=== PATIENT | female | born 1975 | race Caucasian/White ===

== ENCOUNTER 2016-04-30 03:02 | Inpatient (IN) | payer BC ==
[~2016-04-30] VITALS: Ht 167.6 cm; Wt 82.7 kg
[~2016-04-30 03:02] MED LIST: ADVAIR IH; AMBIEN CR 12.12.5 MG PO; AVELOX 400MG T400 MG PO; BACTRIM DS 8001 TAB PO; BIAXIN250 MG PO; CALCIUM CARBONATE; DALIRESP500 MCG PO; LEVOTHYROXINE PO; PRAVACHOL 20MG20 MG PO; PREDNISONE20 MG PO; PRILOSEC 20MG20 MG PO; PROMETHAZINE D118 ML PO; PROVENTIL0.09 MG/A1 IH; RT ADVAIR 528 DISKUS IH; SINGULAIR 110 MG/TAB PO; THEO-24 20200 MG/CAP PO; THEO-24200 MG PO; TUMS500 MG PO; VENTOLIN0.09 MG IH; VITAMIN D1000 IU PO; ZESTRIL 10MG10 MG PO; ZYRTEC 10MG10 MG PO
[2016-04-30 04:14] VITALS: BP 131/81; PULSE 92; TEMP 98.2
[2016-04-30] MEDS ORDERED: SYNTHROID0.1 MG/TAB PO (04:48)
[2016-04-30] MEDS ORDERED: XANAX 1MG1 MG PO (04:49)
[2016-04-30] MEDS ORDERED: ZYFLO CR600 MG PO (04:50)
[2016-04-30] MEDS ORDERED: MAXZIDE-25MG TA1 TAB PO (04:51)
[2016-04-30] MEDS ORDERED: CYMBALTA 60MG60 MG PO (04:52)
[2016-04-30] MEDS ORDERED: MOBIC15 MG PO (04:53)
[2016-04-30] MEDS ORDERED: CARDI-OMEGA1000 MG PO (04:54)
[2016-04-30] MEDS ORDERED: VITAMIN D32000 I1 PO (04:54)
[2016-04-30 07:52] LABS: BASO % 0.2 % (0.0-2.0); EOS # 0.3 (0.0-0.7); EOS % 1.8 % (0-4.0); GRAN # 11.3 (1.4-6.5); GRAN % 73.9 % (42.2-75.2); HEMOGLOBIN 14.5 g/dl (12.5-16.0); LYMPH # 2.5 (1.2-3.4); LYMPH % 16.5 % (20.0-51.0); MEAN CELL VOLUME 93 fl (80.0-100.0); MEAN CORPUSCULAR HEMOGLOBIN 31 pg (27.0-31.0); MEAN CORPUSCULAR HGB CONC 33 g/dl (33.0-37.0); MEAN PLATELET VOLUME 10.3 fl (7.4-10.4); MONO % 6.8 % (1.7-9.3); PLATELET COUNT 290 K/mm3 (130-400); RED BLOOD COUNT 4.72 M/mm3 (4.10-5.30); REDCELL DISTRIBUTION WIDTH-CV 12.7 % (11.5-14.5); WHITE BLOOD COUNT 15.2 K/mm3 (4.8-10.8)
[2016-04-30 08:10] LABS: CALCIUM 9.4 mg/dL (8.4-10.2); CREATININE, serum 1.74 mg/dL (0.52-1.25); POTASSIUM 4.5 mmol/L (3.4-5.0)
[2016-04-30 09:40] VITALS: BP 127/80; PULSE 89; TEMP 97.3
[2016-04-30 13:42] VITALS: BP 119/79; PULSE 97; TEMP 97.1
[2016-04-30 17:52] VITALS: BP 115/73; PULSE 82; TEMP 96.7
[2016-04-30 22:00] VITALS: BP 103/53; PULSE 87; TEMP 98.9
[2016-05-01 06:03] VITALS: BP 104/62; PULSE 76; TEMP 98.4
[2016-05-01 07:59] LABS: BASO % 0.2 % (0.0-2.0); EOS # 0.4 (0.0-0.7); GRAN # 7.2 (1.4-6.5); GRAN % 66.2 % (42.2-75.2); HEMATOCRIT 38.6 % (37.0-47.0); HEMOGLOBIN 12.6 g/dl (12.5-16.0); LYMPH # 2.5 (1.2-3.4); MEAN CELL VOLUME 94 fl (80.0-100.0); MEAN CORPUSCULAR HEMOGLOBIN 31 pg (27.0-31.0); MEAN CORPUSCULAR HGB CONC 33 g/dl (33.0-37.0); MEAN PLATELET VOLUME 10.2 fl (7.4-10.4); MONO # 0.7 (0.1-0.6); MONO % 6.1 % (1.7-9.3); PLATELET COUNT 265 K/mm3 (130-400); RED BLOOD COUNT 4.09 M/mm3 (4.10-5.30); REDCELL DISTRIBUTION WIDTH-CV 12.7 % (11.5-14.5); WHITE BLOOD COUNT 10.9 K/mm3 (4.8-10.8)
[2016-05-01 08:06] LABS: CALCIUM 8.5 mg/dL (8.4-10.2); CREATININE, serum 0.85 mg/dL (0.52-1.25); POTASSIUM 4.2 mmol/L (3.4-5.0)
[2016-05-01 09:36] VITALS: BP 126/70; PULSE 97; TEMP 98.7
[2016-05-01 13:45] VITALS: BP 130/78; PULSE 97; TEMP 98.3
== END 2016-05-01 16:30 | disposition home or self-care (01) | DRG 390 ==
LOC: SURG 03:02
PROVIDERS: Surgery
DX: K56.60 Unspecified intestinal obstruction (principal); I10 Essential (primary) hypertension; M35.9 Systemic involvement of connective tissue, unspecified; J45.909 Unspecified asthma, uncomplicated
CPT/HCPCS: J1170; J2405; J2543; J7030; J7050

== ENCOUNTER 2016-05-04 11:33 | Emergency (ER) | payer BC ==
[~2016-05-04] VITALS: Ht 167.6 cm; Wt 79.5 kg
[~2016-05-04 11:33] MED LIST changes: +CARDI-OMEGA1000 MG PO; +CYMBALTA 60MG60 MG PO; +MAXZIDE-25MG TA1 TAB PO; +MOBIC15 MG PO; +SYNTHROID0.1 MG/TAB PO; +VITAMIN D32000 I1 PO; +XANAX 1MG1 MG PO; +ZYFLO CR600 MG PO
[2016-05-04 11:39] VITALS: TEMP 97.6
[2016-05-04 13:05] LABS: BASO # 0.1 (0.0-0.2); BASO % 0.3 % (0.0-2.0); EOS # 0.6 (0.0-0.7); EOS % 3.3 % (0-4.0); GRAN # 14.5 (1.4-6.5); HEMATOCRIT 48.6 % (37.0-47.0); HEMOGLOBIN 16.1 g/dl (12.5-16.0); LYMPH # 2.3 (1.2-3.4); LYMPH % 12.1 % (20.0-51.0); MEAN CELL VOLUME 92 fl (80.0-100.0); MEAN CORPUSCULAR HEMOGLOBIN 31 pg (27.0-31.0); MEAN CORPUSCULAR HGB CONC 33 g/dl (33.0-37.0); MEAN PLATELET VOLUME 10.2 fl (7.4-10.4); MONO # 1.1 (0.1-0.6); MONO % 5.9 % (1.7-9.3); PLATELET COUNT 345 K/mm3 (130-400); RED BLOOD COUNT 5.28 M/mm3 (4.10-5.30); REDCELL DISTRIBUTION WIDTH-CV 12.6 % (11.5-14.5); WHITE BLOOD COUNT 18.6 K/mm3 (4.8-10.8)
[2016-05-04 13:06] LABS: ADJUSTED CALCIUM 9.9 mg/dL (8.4-10.2); ALBUMIN 4.8 gm/dL (3.5-5.0); BILIRUBIN,TOTAL 0.8 mg/dL (0.0-1.0); C-REACTIVE PROTEIN 0.9 mg/dL (0.0-0.9); CALCIUM 10.5 mg/dL (8.4-10.2); CREATININE, serum 0.93 mg/dL (0.52-1.25); MAGNESIUM 1.7 mg/dL (1.6-2.3); TOTAL PROTEIN 8.3 gm/dL (6.4-8.2)
[2016-05-04 13:22] LABS: PH 6 (5-8); URINE APPEARANCE Hazy; URINE BACTERIA Rare /hpf; URINE BILIRUBIN Negative (NEGATIVE); URINE BLOOD 1+ (NEGATIVE); URINE COLOR Yellow; URINE GLUCOSE Negative (NEGATIVE); URINE KETONE Negative (NEGATIVE); URINE UROBILINOGEN Negative (NEGATIVE); URINE WBC 0-2 /hpf
[2016-05-04] MEDS ORDERED: NORCO 325 MG-51 TAB PO (15:27)
[2016-05-04] MEDS ORDERED: ZOFRAN ODT4 MG PO (15:27)
[2016-05-04] MEDS ORDERED: PHENERGAN 25 TA25 MG PO (15:27)
[2016-05-04 15:35] VITALS: BP 132/94; PULSE 87
== END 2016-05-04 16:18 | disposition home or self-care (01) ==
LOC: COL.ER 11:33
PROVIDERS: Emergency Medicine
DX: R11.10 Vomiting, unspecified (principal); R19.7 Diarrhea, unspecified
CPT/HCPCS: J1170; J2550; J7030; Q9967

== ENCOUNTER 2016-12-09 23:46 | Emergency (ER) | payer SELFPAY ==
[~2016-12-09] VITALS: Ht 167.6 cm; Wt 76.4 kg
[~2016-12-09 23:46] MED LIST changes: +NORCO 325 MG-51 TAB PO; +PHENERGAN 25 TA25 MG PO; +ZOFRAN ODT4 MG PO
[2016-12-09 23:47] VITALS: BP 131/82; TEMP 98.3
[2016-12-10 01:10] VITALS: PULSE 92
== END 2016-12-10 01:11 | disposition home or self-care (01) ==
LOC: COL.ER 23:46
DX: J20.9 Acute bronchitis, unspecified (principal); E03.9 Hypothyroidism, unspecified; I10 Essential (primary) hypertension; F41.9 Anxiety disorder, unspecified; J45.909 Unspecified asthma, uncomplicated; F17.210 Nicotine dependence, cigarettes, uncomplicated; Z90.710 Acquired absence of both cervix and uterus

== ENCOUNTER 2020-06-08 11:38 | Emergency (ER) | payer SELFPAY ==
[~2020-06-08] VITALS: Ht 167.6 cm; Wt 77.3 kg
[2020-06-08 11:46] VITALS: TEMP 97.6
[2020-06-08 12:15] LABS: COLLECTION METHOD CLEAN CATCH
[2020-06-08 12:19] LABS: BASO # 0.1 (0.0-0.2); BASO % 1.1 % (0.0-2.0); EOS # 0.9 (0.0-0.7); EOS % 7.1 % (0-4.0); GRAN # 7.7 (1.4-6.5); GRAN % 61.7 % (42.2-75.2); HEMATOCRIT 51.5 % (37.0-47.0); HEMOGLOBIN 16.5 g/dl (12.5-16.0); LYMPH # 3.2 (1.2-3.4); LYMPH % 25.2 % (20.0-51.0); MEAN CELL VOLUME 93 fl (80.0-100.0); MEAN CORPUSCULAR HEMOGLOBIN 30 pg (27.0-31.0); MEAN CORPUSCULAR HGB CONC 32 g/dl (33.0-37.0); MONO # 0.6 (0.1-0.6); MONO % 4.6 % (1.7-9.3); PLATELET COUNT 326 K/mm3 (130-400); RED BLOOD COUNT 5.57 M/mm3 (4.10-5.30)
[2020-06-08 12:23] LABS: PH 8 (5-8); SQUAMOUS EPITHELIAL 0-2 /hpf; URINE APPEARANCE Clear; URINE BACTERIA Rare /hpf; URINE BILIRUBIN Negative (NEGATIVE); URINE BLOOD Negative (NEGATIVE); URINE COLOR Yellow; URINE GLUCOSE Negative (NEGATIVE); URINE KETONE Negative (NEGATIVE); URINE LEUKOCYTE ESTERASE Negative (NEGATIVE); URINE NITRATE Negative (NEGATIVE); URINE PROTEIN(semi-quant) Negative (NEGATIVE); URINE RBC 0-2 /hpf; URINE UROBILINOGEN Negative (NEGATIVE)
[2020-06-08 12:26] LABS: MUCOUS Present /lpf
[2020-06-08 12:29] LABS: ALBUMIN 4.7 gm/dL (3.5-5.0); BILIRUBIN,TOTAL 0.7 mg/dL (0.0-1.0); CALCIUM 9.8 mg/dL (8.4-10.2); CREATININE, serum 0.73 (0.52-1.25); POTASSIUM 4.6 mmol/L (3.4-5.0); TOTAL PROTEIN 8.1 gm/dL (6.4-8.2)
[2020-06-08 14:46] VITALS: BP 140/111; PULSE 82
== END 2020-06-08 14:48 | disposition home or self-care (01) ==
LOC: COL.ER 11:38
PROVIDERS: Emergency Medicine
DX: R10.9 Unspecified abdominal pain (principal); J45.909 Unspecified asthma, uncomplicated; Z90.710 Acquired absence of both cervix and uterus; Z32.02 Encounter for pregnancy test, result negative; Z88.1 Allergy status to other antibiotic agents
CPT/HCPCS: J1885; J3010; J7120; Q9967

== ENCOUNTER → 2023-01-26 | Outpatient (CLI) | payer MEDICAID | LOC: MHCPAIN 09:06 | DX: M47.897 Other spondylosis, lumbosacral region (principal); M54.50 Low back pain, unspecified | CPT/HCPCS: G0463 ==

== ENCOUNTER 2023-07-25 11:20 | Inpatient (IN) | payer OTHER ==
[~2023-07-25] VITALS: Ht 167.6 cm; Wt 96.8 kg
[2023-07-25] VITALS (509 sets, daily range): BP systolic 72–102; BP diastolic 39–72; PULSE 81–90; TEMP 98.1–98.7; O2SAT 56–100
--- NOTE | 2023-07-25 11:00 | NUR ---
Report received from DORCAS Pradhan; patient arrived via [facility] with levo, epi, and fluids running through her peripheral lines and a Ag catheter in place. Patient on room air and vital signs within normal limits with the exception of blood pressure which has remained soft. Epi discontinued upon transfer and levo continued at a rate of 0.13 mcg/kg/min for a rate of 44.7 mL. Patient alert and oriented with no complaints of pain. Intake information discussed and patient's questions answered. Dr. Posey aware of patient's arrival to the unit.
[~2023-07-25 11:20] MED LIST changes: -SYNTHROID0.1 MG/TAB PO; +SYNTHROID0.125 MG/T PO
[2023-07-25] MEDS ORDERED: NS 1,000 ML IV SCH (11:45)
[2023-07-25] MEDS ORDERED: Acetaminophen 325 MG TAB PO PRN (12:00)
[2023-07-25] MEDS ORDERED: Ondansetron 4 MG/2 ML VIAL IV PRN (12:00)
[2023-07-25] MEDS ORDERED: Albuterol/Ipratropium 3 MG-0.5 MG/3 ML Neb Soln IH PRN (12:00)
[2023-07-25] MEDS ORDERED: 00186-0370-20 IH (12:11)
[2023-07-25] MEDS ORDERED: BUSPAR10 MG PO (12:12)
[2023-07-25] MEDS ORDERED: ESTRACE 1MG1 MG/TAB PO (12:13)
[2023-07-25] MEDS ORDERED: AUVELITY ER 451 EACH PO (12:13)
[2023-07-25] MEDS ORDERED: MINIPRESS 1M1 MG/CAP PO (12:15)
[2023-07-25] MEDS ORDERED: LYRICA 150MG C150 MG PO (12:16)
[2023-07-25] MEDS ORDERED: SEROQUEL50 MG PO (12:17)
[2023-07-25] MEDS ORDERED: CRESTOR5 MG PO (12:18)
[2023-07-25] MEDS ORDERED: WEGOVY0.25 MG/0. SQ (12:19)
[2023-07-25] MEDS ORDERED: VIIBRYD40 MG PO (12:20)
[2023-07-25] MEDS ORDERED: Montelukast 10 MG TAB PO SCH (12:30)
[2023-07-25] MEDS ORDERED: Cetirizine 10 MG TAB PO SCH (12:30)
[2023-07-25 12:59] LABS: CALCIUM 7.5 mg/dL (8.4-10.2); CREATININE, serum 6.81 mg/dL (0.57-1.11); POTASSIUM 3.3 mEq/L (3.5-4.5)
[2023-07-25 13:09] LABS: TROPONIN-I 0.039 ng/mL (0.00-0.033)
[2023-07-25] MEDS ORDERED: Pregabalin 150 MG CAP PO SCH (14:00)
[2023-07-25] MEDS ORDERED: busPIRone 5 MG TAB PO SCH (14:00)
[2023-07-25] MEDS ORDERED: Heparin 5,000 UNITS/ML 1 ML VIAL SQ SCH (14:00)
[2023-07-25] MEDS ORDERED: Albuterol/Ipratropium 3 MG-0.5 MG/3 ML Neb Soln IH SCH (14:00)
[2023-07-25] MEDS ORDERED: Sodium Bicarbonate 650 MG TAB PO SCH (15:17)
[2023-07-25 16:11] LABS: COLLECTION METHOD CATHETER
[2023-07-25 16:34] LABS: PH 5.5 (5.0-8.5); URINE APPEARANCE CLEAR (CLEAR/HAZY); URINE BLOOD 1+ (NEGATIVE); URINE COLOR YELLOW (YELLOW); URINE GLUCOSE 2+ (NEGATIVE); URINE KETONE NEGATIVE (NEGATIVE); URINE NITRATE NEGATIVE (NEGATIVE); URINE PROTEIN(semi-quant) 1+ (NEGATIVE); URINE UROBILINOGEN 0.2 E.U/dL (0.2-1.0)
[2023-07-25] MEDS ORDERED: Formoterol 20 MCG,Budesonide 0.5 MG IH SCH (19:00)
--- NOTE | 2023-07-25 19:37 | NUR ---
PATIENT LAYINGIN BED, ALERT AND CALM. IV IN RIGHT AC WITH LEVO AND NS RUNNING. NO ACUTE EVENTS.
[2023-07-25] MEDS ORDERED: ALPRAZolam 0.5 MG TAB PO SCH (21:00)
[2023-07-25 22:35] LABS: CALCIUM 7.3 mg/dL (8.4-10.2); CREATININE, serum 5.95 mg/dL (0.57-1.11)
[2023-07-25] MEDS ORDERED: Potassium Bicarbonate/Citrate 20 MEQ Effervescent TAB PO ONE (23:00)
[2023-07-26] VITALS (781 sets, daily range): BP systolic 65–113; BP diastolic 37–101; PULSE 78–105; TEMP 97.8–98.6; O2SAT 64–100
[2023-07-26 01:27] LABS: CALCIUM 7.4 mg/dL (8.4-10.2); CREATININE, serum 5.63 mg/dL (0.57-1.11); POTASSIUM 3.2 mEq/L (3.5-4.5)
[2023-07-26 06:25] LABS: BASO # 0.2 K/mm3 (0.0-0.2); BASO % 1.4 % (0.0-2.0); EOS # 0.7 K/mm3 (0.0-0.7); EOS % 4.5 % (0.0-4.0); GRAN # 9.1 K/mm3 (1.4-6.5); GRAN % 62.5 % (42.2-75.2); HEMATOCRIT 44.3 % (37.0-47.0); HEMOGLOBIN 14.2 g/dl (12.5-16.0); LYMPH # 3.4 K/mm3 (1.2-3.4); LYMPH % 23.5 % (20.0-51.0); MEAN CELL VOLUME 89 fl (80.0-100.0); MEAN CORPUSCULAR HEMOGLOBIN 29 pg (27-31); MEAN CORPUSCULAR HGB CONC 32 g/dl (33.0-37.0); MONO # 1.1 K/mm3 (0.1-0.6); MONO % 7.8 % (1.7-9.3); PLATELET COUNT 384 K/mm3 (130-400); RED BLOOD COUNT 4.99 M/mm3 (4.10-5.30)
[2023-07-26 06:40] LABS: CALCIUM 7.8 mg/dL (8.4-10.2); CREATININE, serum 5.06 mg/dL (0.57-1.11); MAGNESIUM 1.7 mg/dL (1.6-2.6); PHOSPHOROUS 3.9 mg/dL (2.3-4.7); POTASSIUM 3.1 mEq/L (3.5-4.5)
[2023-07-26 06:49] LABS: TROPONIN-I 0.014 ng/mL (0.00-0.033)
[2023-07-26] MEDS ORDERED: LEVOTHYROXINE PO SCH (07:00)
--- NOTE | 2023-07-26 07:00 | NUR ---
Report received from DORCAS Galeas; patient resting in bed watching TV. Patient has levo and NS running through her peripheral line. Patient still has Ag catheter in place; no other lines or tubes are in place at this time. Patient's vital signs are within normal limits this morning.
[2023-07-26] MEDS ORDERED: Vilazodone 10 MG TAB PO SCH (09:00)
[2023-07-26] MEDS ORDERED: *Potassium Replacement Protocol MC SCH (10:00)
[2023-07-26] MEDS ORDERED: Potassium Bicarbonate/Citrate 20 MEQ Effervescent TAB PO ONE (10:00)
[2023-07-26] MEDS ORDERED: Magnesium Oxide 400 MG TAB PO SCH (12:00)
--- NOTE | 2023-07-26 13:17 | NUR ---
Social work student met with patient to discuss discharge planning. Patient's best point of contacts are her partner Reagan (ph#:[phone]) and daughter Nakul (ph#:[phone]). Patient sees for primary care and obtains her medications from [facility] in [place] with no difficulties affording them. Patient does not use DME and is independent with ADLS. Patient transports herself to and from appointments and has no concerns with returning home at time of discharge. Discharge plan: Home
[2023-07-26] MEDS ORDERED: cefTRIAXone 1 G in Water For Injection,Sterile 10 ML IV SCH (14:00)
--- NOTE | 2023-07-26 21:54 | NUR ---
PATIENT WITH ONE IV INFUSING NS AND LEVOPHED WAS RESTARTED SHORTLY AFTER SHIFT CHANGE. THE PUMP WOULD RING OCCLUDED WITH NO PATIENT MOVEMENT. THE IV SITE APPEARS TO BE INTACT AND NOT LEAKING. A NEW IV WAS PLACED. WILL CONTINUE TO TITRATE THE LEVOPHED WITH THE NEW IV IN PLACE AND MONITOR THE BP.
--- NOTE | 2023-07-26 23:03 | NUR ---
PT IS SITTING IN THE BED EATING DINNER. ALERT AND ORIENTED. SILVA CATHETER IN PLACE DRAINING URINE. ONE IV INFUSING FLUIDS. NO COMPLAINTS OF PAIN. NO FAMILY AT THE BEDSIDE. BED ALARM ACTIVATED AND CALL BLACKMAN AT THE BEDSIDE.
[2023-07-27] VITALS (618 sets, daily range): BP systolic 95–119; BP diastolic 55–78; PULSE 80–96; TEMP 98.2–98.6; O2SAT 33–100
[2023-07-27 04:29] LABS: BASO # 0.2 K/mm3 (0.0-0.2); BASO % 1.3 % (0.0-2.0); EOS # 0.6 K/mm3 (0.0-0.7); EOS % 4.9 % (0.0-4.0); GRAN # 7.2 K/mm3 (1.4-6.5); GRAN % 58.2 % (42.2-75.2); LYMPH # 3.4 K/mm3 (1.2-3.4); LYMPH % 27.5 % (20.0-51.0); MEAN CELL VOLUME 87 fl (80.0-100.0); MEAN CORPUSCULAR HGB CONC 33 g/dl (33.0-37.0); MEAN PLATELET VOLUME 11.4 fl (7.4-10.4); MONO % 7.8 % (1.7-9.3); PLATELET COUNT 298 K/mm3 (130-400); REDCELL DISTRIBUTION WIDTH-CV 15.1 % (11.5-14.5)
[2023-07-27 04:41] LABS: CALCIUM 7.5 mg/dL (8.4-10.2); CREATININE, serum 3.26 mg/dL (0.57-1.11); MAGNESIUM 1.3 mg/dL (1.6-2.6); POTASSIUM 3.4 mEq/L (3.5-4.5)
[2023-07-27 04:45] LABS: HEMATOCRIT 35.6 % (37.0-47.0); HEMOGLOBIN 11.7 g/dl (12.5-16.0); MEAN CORPUSCULAR HEMOGLOBIN 29 pg (27-31)
[2023-07-27] MEDS ORDERED: Potassium Bicarbonate/Citrate 20 MEQ Effervescent TAB PO ONE (05:45)
--- NOTE | 2023-07-27 07:45 | NUR ---
Awake and eating breakfast. Patient reports feeling "good" this morning. Denies any concerns or complaints. Call light left within reach.
[2023-07-27] MEDS ORDERED: Magnesium Sulfate 4 GM/50 ML IV SOLN IV ONE (10:00)
--- NOTE | 2023-07-27 10:29 | NUR ---
Initial visit; Patient thanked Robotics Engineer for coming in to see her and offer prayer and support. Patient stated her kidneys shut down and this had happened to her before when she became ill. She agreed with Robotics Engineer when Robotics Engineer offered support by stating she is in good hands with our wonderful Dr's and nurses to take care of her. Robotics Engineer wished her well and will keep her in Robotics Engineer's prayers and follow up while Janet is a patient here.
--- NOTE | 2023-07-27 13:00 | NUR ---
Assisted back to bed after sitting in recliner for lunch. Tolerated well. Taking a "nap" per patient request. Call light left within reach.
[2023-07-27] MEDS ORDERED: Warfarin 5 MG TAB PO SCH (21:00)
[2023-07-28] VITALS (655 sets, daily range): BP systolic 92–124; BP diastolic 55–82; PULSE 68–94; TEMP 97.7–98.6; O2SAT 76–99
[2023-07-28 04:38] LABS: PROTHROMBIN TIME 10.9 SECONDS (9.7-12.8)
--- NOTE | 2023-07-28 07:20 | NUR ---
Patient awake and resting in bed; reports feeling "good" and asking about being transfered to the medical floor today. VS stable. Call light left within reach.
[2023-07-28 08:29] LABS: BASO # 0.1 K/mm3 (0.0-0.2); BASO % 1.1 % (0.0-2.0); EOS # 0.6 K/mm3 (0.0-0.7); EOS % 6.4 % (0.0-4.0); GRAN # 5.6 K/mm3 (1.4-6.5); HEMOGLOBIN 11.8 g/dl (12.5-16.0); LYMPH # 2.5 K/mm3 (1.2-3.4); LYMPH % 26.9 % (20.0-51.0); MEAN CELL VOLUME 90 fl (80.0-100.0); MEAN CORPUSCULAR HEMOGLOBIN 29 pg (27-31); MEAN CORPUSCULAR HGB CONC 32 g/dl (33.0-37.0); MEAN PLATELET VOLUME 11.6 fl (7.4-10.4); MONO # 0.5 K/mm3 (0.1-0.6); MONO % 5.2 % (1.7-9.3); PLATELET COUNT 296 K/mm3 (130-400); RED BLOOD COUNT 4.08 M/mm3 (4.10-5.30); REDCELL DISTRIBUTION WIDTH-CV 15.6 % (11.5-14.5)
[2023-07-28 08:30] LABS: HEMATOCRIT 36.6 % (37.0-47.0)
[2023-07-28 09:01] LABS: CALCIUM 7.8 mg/dL (8.4-10.2); CREATININE, serum 1.73 mg/dL (0.57-1.11); POTASSIUM 3.8 mEq/L (3.5-4.5)
[2023-07-28] MEDS ORDERED: Potassium Bicarbonate/Citrate 20 MEQ Effervescent TAB PO ONE (09:45)
[2023-07-28] MEDS ORDERED: Magnesium Sulfate 4 GM/50 ML IV SOLN IV ONE (11:00)
--- NOTE | 2023-07-28 11:05 | NUR ---
drywall metal stud worker attended clinical rounding with Dr. Guzman. Patient is transferring to medical floor today.
[2023-07-28] MEDS ORDERED: QUEtiapine 25 MG TAB PO SCH (14:00)
--- NOTE | 2023-07-28 14:30 | NUR ---
PT ON THE FLOOR VIA WHEELCHAIR. PT ORIENTED TO ROOM, PHONE, AND CALL LIGHT. INT TO RIGHT FOREARM PATENT. NORMAL SALINE BROUGHT UP FROM ICU AND RESTARTED AT 75 MLS/HR PER ORDER IN RIGHT FOREARM. PT DENIES PAIN OR NEEDS AT THIS TIME. ASSESSMENTS AND MED REC DONE. FALL RISK ITEMS ON. BED IN LOWEST POSITION, CALL LIGHT IN REACH, BED ALARM ON
--- NOTE | 2023-07-28 19:07 | NUR ---
PATIENT RESTING IN BED WITH EYES CLOSED IN THE APPEARANCE OF SLEEP WITH TV ON WITH NO FAMILY PRESENT WITH NO ACUTE DISTRESS NOTED. PATIENT EASILY AROUSED. PATIENT ON ROOM AIR. NS INFUSING INTO RIGHT FOREARM WITH NO COMPLICATIONS NOTED. PATIENT DENIES ANY NEEDS AT THIS TIME. PATIENT CARE ASSUMED FROM [facility]. BED IN LOW POSITION WITH WHEELS LOCKED WITH RAILS UP X3 AND CALL LIGHT WITHIN REACH. BED ALARM ON.
--- NOTE | 2023-07-28 19:24 | NUR ---
REPORT GIVEN TO DORCAS STERN
--- NOTE | 2023-07-28 20:45 | NUR ---
PATIENT SITTING UP IN BED WATCHING TV WITH NO FAMILY PRESENT WITH NO ACUTE DISTRESS NOTED. PATIENT ON ROOM AIR. NS INFUSING INTO RIGHT FOREARM WITH NO COMPLICATIONS NOTED. ASSESSMENT AND MEDICATION ADMINISTRATION COMPLETED AT THIS TIME. PATIENT TOLERATED WELL. PATIENT REQUESTED SOMETHING TO EAT. PATIENT AGREED UPON A SANDWICH TRAY, JELLO, ICE CREAM, AND PUDDING. ALL GIVEN. WATER PITCHER FILLED UP WITH ICE AND WATER. PATIENT DENIES ANY OTHER NEEDS AT THIS TIME. BED IN LOW POSITION WITH WHEELS LOCKED WITH RAILS UP X3 AND CALL LIGHT WITHIN REACH. BED ALARM ON.
--- NOTE | 2023-07-28 22:05 | NUR ---
PATIENT RESTING IN BED WITH TV ON WITH NO FAMILY PRESENT WITH NO ACUTE DISTRESS NOTED. PATIENT ON ROOM AIR. NS INFUSING INTO RIGTH FOREARM WITH NO COMPLICATIONS NOTED. LOVENOX GIVEN AT THIS TIME. PATIENT TOLERATED WELL. PATIENT DENIES ANY NEEDS. BED IN LOW POSITION WITH WHEELS LOCKED WITH RAILS UP X3 AND CALL LIGHT WITHIN REACH. BED ALARM ON.
[2023-07-29] VITALS (10 sets, daily range): BP systolic 111–157; BP diastolic 67–96; PULSE 71–74; TEMP 97.3–99.2
--- NOTE | 2023-07-29 07:12 | NUR ---
pt resting in bed and is awake. IV right forearm running NS at 75 mL/hr. No infiltration or redness noted. Bed at lowest position, call light within reach. Pt denies any needs at this time.
[2023-07-29 07:57] LABS: BASO # 0.1 K/mm3 (0.0-0.2); BASO % 1.5 % (0.0-2.0); EOS # 0.8 K/mm3 (0.0-0.7); EOS % 10.6 % (0.0-4.0); GRAN # 2.7 K/mm3 (1.4-6.5); GRAN % 37.4 % (42.2-75.2); HEMOGLOBIN 11.4 g/dl (12.5-16.0); LYMPH # 3.2 K/mm3 (1.2-3.4); LYMPH % 44.2 % (20.0-51.0); MEAN CELL VOLUME 92 fl (80.0-100.0); MEAN CORPUSCULAR HEMOGLOBIN 29 pg (27-31); MEAN CORPUSCULAR HGB CONC 31 g/dl (33.0-37.0); MEAN PLATELET VOLUME 12.4 fl (7.4-10.4); MONO # 0.5 K/mm3 (0.1-0.6); MONO % 6.3 % (1.7-9.3); PLATELET COUNT 282 K/mm3 (130-400); RED BLOOD COUNT 3.98 M/mm3 (4.10-5.30); REDCELL DISTRIBUTION WIDTH-CV 15.9 % (11.5-14.5)
[2023-07-29 07:58] LABS: HEMATOCRIT 36.7 % (37.0-47.0)
[2023-07-29 08:12] LABS: INR 1.1 (0.8-3.0); PROTHROMBIN TIME 11.6 SECONDS (9.7-12.8)
[2023-07-29 08:34] LABS: CALCIUM 8.1 mg/dL (8.4-10.2); CREATININE, serum 1.38 mg/dL (0.57-1.11); POTASSIUM 4.1 mEq/L (3.5-4.5)
--- NOTE | 2023-07-29 09:00 | NUR ---
PT LAYING IN BED UPON ENTERING. ASSESSMENT DONE, MEDS GIVEN BY [facility] ADN STUDENT. NORMAL SALINE RUNNING AT 75 MLS/HR IN RIGHT FOREARM IV. PT DENIES NEEDS. BED IN LOWEST POSITION, CALL LIGHT IN REACH, BED ALARM ON
--- NOTE | 2023-07-29 10:59 | NUR ---
cloth worker met with pt to discuss PT/OT reccomendations of possible HH services. Pt politely declined and said she is doing okay without it. Pt was unsure when she would discharge and said she was hearing conflicting plans about when this could be. Discharge Plan: home
--- NOTE | 2023-07-29 13:02 | NUR ---
PT ASKING THIS NURSE WHEN SHES GOING TO GET CT OR DISCHARGED. THIS NURSE NOTIFIED HER THAT THERE ARE ORDERS FOR NEITHER AT THIS TIME. DR HECK THEN DR HEMPHILL CALLED. DR HEMPHILL NOTIFIED THIS NURSE THAT WE ARE STILL WAITING FOR AN IMPROVEMENT IN KIDNEY FUNCTION AND POSSIBLE CT AND DISCHARGE TOMORROW
--- NOTE | 2023-07-29 14:06 | NUR ---
Warfarin Follow-up Pharmacy Note Current regimen: Warfarin 5 mg po qHS LABS: INR 1.1 Changes in therapy: Will increase dose to Warfarin 7.5 mg po qHS starting tonight. Pharmacy will continue to closely monitor daily INR levels.
--- NOTE | 2023-07-29 19:25 | NUR ---
REPORT GIVEN TO DORCAS FORRESTER
[2023-07-29] MEDS ORDERED: NS 1,000 ML IV SCH (23:00)
[2023-07-30 00:46] VITALS: BP 120/73; PULSE 75; TEMP 97.8
[2023-07-30 00:50] VITALS: BP_SYST 120
[2023-07-30 04:16] VITALS: BP 134/86; PULSE 69; TEMP 97.9
[2023-07-30 04:20] VITALS: BP_SYST 134
[2023-07-30 06:29] LABS: INR 1.2 (0.8-3.0); PROTHROMBIN TIME 12.5 SECONDS (9.7-12.8)
[2023-07-30 06:33] LABS: BASO # 0.1 K/mm3 (0.0-0.2); BASO % 1.4 % (0.0-2.0); EOS # 0.7 K/mm3 (0.0-0.7); EOS % 9.3 % (0.0-4.0); GRAN # 3.1 K/mm3 (1.4-6.5); GRAN % 38.5 % (42.2-75.2); HEMOGLOBIN 11.2 g/dl (12.5-16.0); LYMPH # 3.4 K/mm3 (1.2-3.4); LYMPH % 43.2 % (20.0-51.0); MEAN CELL VOLUME 91 fl (80.0-100.0); MEAN CORPUSCULAR HEMOGLOBIN 29 pg (27-31); MEAN CORPUSCULAR HGB CONC 32 g/dl (33.0-37.0); MEAN PLATELET VOLUME 11.9 fl (7.4-10.4); MONO # 0.6 K/mm3 (0.1-0.6); MONO % 7.2 % (1.7-9.3); PLATELET COUNT 253 K/mm3 (130-400); RED BLOOD COUNT 3.89 M/mm3 (4.10-5.30); REDCELL DISTRIBUTION WIDTH-CV 15.5 % (11.5-14.5)
[2023-07-30 06:39] LABS: CALCIUM 8.5 mg/dL (8.4-10.2); CREATININE, serum 1.19 mg/dL (0.57-1.11); POTASSIUM 4.1 mEq/L (3.5-4.5)
[2023-07-30 06:43] LABS: HEMATOCRIT 35.2 % (37.0-47.0)
--- NOTE | 2023-07-30 07:35 | NUR ---
Patient awake and in the bathroom. VSS. IV CDI. Denies pain and discomfort. Call light within reach. Bed alarm on
[2023-07-30 07:43] VITALS: BP 156/86; PULSE 69; TEMP 97.5
[2023-07-30] MEDS ORDERED: PROAMATINE 5MG T5 MG PO (10:43)
[2023-07-30] MEDS ORDERED: SODIUM BICARBO650 MG PO (10:44)
[2023-07-30] MEDS ORDERED: NS 100 ML IV SCH (10:51)
[2023-07-30] MEDS ORDERED: Iohexol 300 - 100 ML VIAL IV ONE (10:51)
--- NOTE | 2023-07-30 11:37 | NUR ---
circulation worker was notified by Dr. Awad patient is medically ready for discharge and will return home today. Discharge plan: Home
[2023-07-30 11:55] VITALS: BP 165/96; PULSE 88; TEMP 97.7
--- NOTE | 2023-07-30 14:45 | NUR ---
Discharge paperwork reviewed with the patient. Patient verbalized an understanding to follow doctors orders. IV removed, tip intact. Gauze and coban applied. Patient taken by wheelchair to awaiting vehicle. No further needs expressed
== END 2023-07-30 14:45 | disposition home or self-care (01) | DRG 682 ==
LOC: ICU 11:20 → MEDICAL 11:20 → ICU 11:56 → MEDICAL 07-28 14:30
PROVIDERS: Internal Medicine; Internal Medicine Pulmonary Disease; ADMIT Internal Medicine
DX: N17.9 Acute kidney failure, unspecified (principal); R57.1 Hypovolemic shock; E87.20 Acidosis, unspecified; R34 Anuria and oliguria; D72.829 Elevated white blood cell count, unspecified; R19.7 Diarrhea, unspecified; I10 Essential (primary) hypertension; E87.5 Hyperkalemia; E78.5 Hyperlipidemia, unspecified; J45.909 Unspecified asthma, uncomplicated; E03.9 Hypothyroidism, unspecified; M79.7 Fibromyalgia; F41.9 Anxiety disorder, unspecified; F32.A Depression, unspecified; E83.42 Hypomagnesemia
CPT/HCPCS: A9540-JZ; A9567-JZ; J0696; J1644; J1650; J2543; J3475; J7030; J7060; Q3014; Q9967

== ENCOUNTER 2023-12-02 09:24 | Day surgery (SDC) | payer OTHER ==
[~2023-12-02] VITALS: Ht 167.6 cm; Wt 90.8 kg
[~2023-12-02 09:24] MED LIST changes: +00186-0370-20 IH; +AUVELITY ER 451 EACH PO; +BUSPAR10 MG PO; +CRESTOR5 MG PO; +ESTRACE 1MG1 MG/TAB PO; +LYRICA 150MG C150 MG PO; +MINIPRESS 1M1 MG/CAP PO; +PROAMATINE 5MG T5 MG PO; +SEROQUEL 1100 MG/TAB PO; +SODIUM BICARBO650 MG PO; +VIIBRYD40 MG PO; +WEGOVY0.25 MG/0. SQ
[2023-12-02 09:53] VITALS: BP 112/76; PULSE 93; TEMP 98.9
--- NOTE | 2023-12-02 10:10 | NUR ---
Pt arrived via EMS from [facility] at 0923, VSS upon arrival and on 2L O2, recieved verbal report at bedside; reviewed meds/pharm/history/allergies; reviewed and signed consents, no questions/concerns; 20G RFA IV placed at [place], flushes well and NS hanging from prior facility, tubing changed.
[2023-12-02] MEDS ORDERED: NS 1,000 ML IV SCH (10:15)
[2023-12-02] MEDS ORDERED: Ondansetron 4 MG/2 ML VIAL ONE (11:33)
[2023-12-02] MEDS ORDERED: dexAMETHasone 10 MG/ML VIAL ONE (11:33)
[2023-12-02] MEDS ORDERED: fentaNYL 50 MCG/ML 5 ML VIAL ONE (11:33)
[2023-12-02] MEDS ORDERED: Lidocaine PF 2% (20 MG/ML) 5 ML VIAL ONE (11:33)
[2023-12-02] MEDS ORDERED: Rocuronium 50 MG/5 ML Multi-Dose VIAL ONE (11:34)
[2023-12-02] MEDS ORDERED: NORCO 325 MG-51 TAB PO (12:39)
[2023-12-02] MEDS ORDERED: Ibuprofen 600 MG TAB PO PRN (12:45)
[2023-12-02] MEDS ORDERED: Ondansetron 4 MG/2 ML VIAL IV PRN ×2 (12:45→13:15)
[2023-12-02] MEDS ORDERED: HYDROmorphone 1 MG/1 ML SYRINGE [PACU/SDC ONLY] IV PRN (13:15)
[2023-12-02] MEDS ORDERED: fentaNYL 50 MCG/ML 1 ML SYRINGE/VIAL [PACU/SDC ONLY] IV PRN (13:15)
[2023-12-02] MEDS ORDERED: Meperidine 50 MG/ML 1 ML VIAL IV PRN (13:15)
[2023-12-02] MEDS ORDERED: hydrALAZINE 20 MG/ML 1 ML VIAL IV PRN (13:15)
[2023-12-02] MEDS ORDERED: droPERidol 2.5 MG/ML 2 ML VIAL IV PRN (13:15)
[2023-12-02 14:25] VITALS: BP 100/78; PULSE 74; TEMP 98.2
[2023-12-02 14:30] VITALS: BP 126/79; PULSE 75
[2023-12-02 14:45] VITALS: BP 139/75; PULSE 71
--- NOTE | 2023-12-02 15:25 | NUR ---
Report received from Lola PATIENT RELATIONS SPECIALIST. At 1425 pt returned via cart to [facility]. A&O. VSS-see flowsheet. Given water and apple sauce per request. IV patent to right wrist. Pts s/o present in room. Pt tolerated oral intake. Pain managed with oral pain medication and no nausea. IV removed, pressure dressing applied and pt able to ambulate to bathroom and void without difficulty. Discharge teaching completed and pt verbalized understanding. This RN tried to schedule 2 week follow up but only able to leave message with [facility]. Pt aware she needs to follow up. Taken via wheelchair to private vehicle for dc home with s/o driving.
== END 2023-12-02 15:25 | disposition home or self-care (01) ==
LOC: SDCO 09:24
DX: K35.80 Unspecified acute appendicitis (principal)
CPT/HCPCS: J0690; J1100; J2405; J2704; J3010